=== PATIENT | female | born 1970 | race Caucasian/White ===

== ENCOUNTER 2022-06-23 15:30 | Outpatient (RCR) | payer MEDICARE, SELFPAY ==
[2022-04-01 13:02] LABS: Eosinophils Percent Auto 1.4 % (0.0-7.0); Hematocrit 28.4 % (33.0-51.0); Hemoglobin* 9.2 gm/dL (12.0-16.0); Immature Granulocytes Abs Auto 0.08 K/uL (0.00-0.30); Lymphocytes Percent Auto 15.9 % (20-44); Mean Corpuscular HGB Conc 32 gm/dL (32-36); Mean Corpuscular Hemoglobin 28 pg (26-34); Mean Corpuscular Volume 87 fL (80-100); Monocytes Percent Auto 5.9 % (0.0-11.0); Platelet Count* 146 K/uL (140-440); RDW Coefficient of Variation % 15.1 % (11.5-15.5); Red Blood Count 3.27 m/uL (4.00-5.20)
[2022-04-01 13:03] LABS: Slide Review Reflex No
[2022-04-01 13:04] LABS: Albumin* 3.9 g/dL (3.3-5.0); Chloride* 103 mmol/L (96-114); Sodium* 138 mmol/L (135-149)
[2022-04-01 13:05] LABS: Potassium* 4.4 mmol/L (3.6-5.1)
[2022-04-01 13:07] LABS: Alanine Aminotransferase* 43 U/L (4-35); Alkaline Phosphatase* 126 U/L (40-150); Aspartate Amino Transferase* 71 U/L (12-35); Bilirubin Total* 0.3 mg/dL (0.1-1.5); Blood Urea Nitrogen* 33 mg/dL (5-24); Carbon Dioxide* 27 mmol/L (20-32); Creatinine* 0.8 mg/dL (0.5-1.5); Estimated Glomerular Filt Rate 90 ml/min; Glucose* 85 mg/dL (60-115); Lactate Dehydrogenase* 762 U/L (313-618); Total Protein* 7.8 g/dL (6.0-8.3)
[2022-04-01 13:08] LABS: Calcium* 8.8 mg/dL (8.4-10.6)
[2022-04-02 14:09] LABS: Erythropoietin 27 mU/mL (4-27)
[2022-04-04 03:42] LABS: Copper, Serum/Plasma 141.6 ug/dL (80.0-155.0)
== END 2022-09-28 23:59 | disposition home or self-care (01) ==
LOC: CCIC 15:30
PROVIDERS: Visit Provider Internal Medicine Hematology & Oncology
DX: C54.1 Malignant neoplasm of endometrium (principal)
CPT/HCPCS: 36415; 80053; 81270; 82525; 82668; 83615; 84443; 85025; 99202; 99204; 99205; 99214